=== PATIENT | female | born 1960 | race Caucasian/White ===

== ENCOUNTER 2016-06-21 21:26 | Emergency (ER) | payer OTHER ==
[~2016-06-21] VITALS: Ht 160 cm; Wt 52.0 kg
[~2016-06-21 21:26] MED LIST: BUPR-97 PO; CHOL5000 PO; CITA40TA13 PO; CLON0.5T PO; KEPP250T PO; LISI-567 PO; MELO-253 PO
[2016-06-21 21:40] VITALS: BP 120/83; PULSE 85; RESP 20; O2SAT 97
--- NOTE | 2016-06-21 21:50 | ED.REPORT ---
HPI-General Illness Date of Service Jun 21, 2016 ED Provider: Ivonne Hamilton MD 55 year old female with a history of alcoholism and seizure disorder presents to the ER accompanied by two friends from her adventism requesting assistance with alcohol detox. Last drink was two hours ago. Typically she drinks 9 beers, and/ or vodka daily, though she states she has consumed only beer today. History of hospitalization for alcohol withdrawal symptoms, though she denies seizure with alcohol withdrawal. She has successfully rehabilitated from alcoholism in the past, but states that she relapsed several weeks ago. Patient denies suicidal or homicidal ideations, and hallucinations. Nursing Notes Stated Complaint: ALCOHOL DETOX Chief Complaint: Substance Abuse Nursing Notes Reviewed: Yes Allergies: Coded Allergies: No Known Allergies (Unverified Allergy, Unknown, 05/12/14) Scheduled Bupropion ER (Wellbutrin XL) 150 Mg Tab.er.24h 150 MG PO DAILY Citalopram (Citalopram) 40 Mg Tablet 40 MG PO DAILY Levetiracetam (Keppra) Unknown Strength Tablet Unknown Dose PO HS Levetiracetam (Keppra) 500 Mg Tablet 500 MG PO DAILY Lisinopril (Lisinopril) 20 Mg Tablet 20 MG PO DAILY Meloxicam (Meloxicam) 15 Mg Tablet 15 MG PO DAILY Scheduled PRN Clonazepam (Klonopin) 0.5 Mg Tablet 1 MG PO BID PRN PRN For Anxiety Miscellaneous Medications Cholecalciferol (Vitamin D3) (Vitamin D3) 5,000 Unit Capsule 5,000 UNIT PO General Time Seen by MD: 21:48 Chief Complaint Other (Alcohol Detox) Hx Obtained From: Patient Arrived By: Walk-in Sudden in Onset?: No Similar Sx Previous: Yes Past Medical History Past Medical History Alcoholism Seizure disorder since Slight cerebral palsy at Anxiety Depression Reports: Hypertension, Stroke Past Surgical History Neck surgery 2 years ago Brain surgery for hemorrhage Smoking History Current Every Day Smoker Social History Alcohol Use: >5 per day Drug Use: Denies drug use Ambulatory Status Independent Review of Systems Full Review of Systems Constitutional: Reports: Chills Neurologic: Reports: Shaking Psychiatric: Denies: Hallucinations, auditory, Hallucinations, visual, Homicidal ideation, Suicidal ideation Complete sys rev & neg: except as marked. Physical Exam Vital Signs Vital Signs Date Time Temp Pulse Resp B/P Pulse Ox O2 Delivery O2 Flow Rate FiO2 06/22/16 01:33 60 18 95 Room Air 06/21/16 21:40 36.6 85 20 120/83 97 Room Air Initial VS: Reviewed General/Constitutional: Well-developed, Well-nourished Head / Eyes: Atraumatic, Normocephalic Neck: Supple, Non-tender, Full range of motion Extremities: Vascular intact, Neuro intact, No swelling, No tenderness Skin: Warm, Dry, No cyanosis Neurologic: Alert, Oriented, Nonfocal Respiratory / Chest: Breath sounds NL, No respiratory distress, No rales, No rhonchi, No wheezing Cardiovascular: Heart rate NL, Regular rhythm, Heart sounds NL, Cap refill not delayed, Peripheral circulation NL Psychiatric: Affect NL, Mood NL, Not suicidal, Not homicidal, No hallucinations , Cognitive function NL, Judgment/insight NL, Thought content NL Interpretation & Diagnostics Lab Results Interpretation Result Diagram: 06/21/16 2300 06/21/16 2300 Test 06/21/16 22:55 06/21/16 23:00 Urine Color Straw (YELLOW) Urine Appearance Hazy (CLEAR,HAZY) Urine pH 6.5 (5.0-8.0) Urine Specific [place] 1.003 (1.003-1.035) Urine Protein Negativemg/dL (NEG,TRACE) Urine Glucose (UA) Negativemg/dL (NEGATIVE) Urine Ketones Negativemg/dL (NEGATIVE) Urine Occult Blood Small (NEGATIVE) Urine Nitrite Positive (NEGATIVE) Urine Bilirubin Negative (NEGATIVE) Urine Urobilinogen Normalmg/dL (NORMAL) Urine Leukocyte Esterase Small (NEGATIVE) Urine RBC 0-2/hpf (0-2) Urine WBC 0-5/hpf (0-5) Urine Epithelial Cells Occasional/hpf (NONE-MOD) Urine Crystals None seen (NONE SEEN) Urine Bacteria Many/hpf (NONE-FEW) Urine Hyaline Casts None/lpf (NONE) Urine Granular Casts None seen (NONE SEEN) Urine Waxy Casts None seen (NONE SEEN) Urine Red Blood Cell Casts None seen (NONE SEEN) Urine White Blood Cell Casts None seen (NONE SEEN) Urine Mucus None seen (None Seen) Urine Trichomonas None seen (NONE SEEN) Urine Yeast None (NONE SEEN) Urinalysis Comment None Urine Culture Reflexed Indicated Hold Urine Received (Received) White Blood Count 5.9th/mm3 (3.8-10.1) Red Blood Count 4.42mil/mm3 (3.90-5.20) Hemoglobin 14.3g/dL (12.0-15.6) Hematocrit 40.9% (35.0-46.0) Mean Corpuscular Volume 92.5fL (81-100) Mean Corpuscular Hemoglobin 32.4pg (27.0-35.0) Mean Corpuscular Hemoglobin Concent 35.0% (32.0-37.0) Red Cell Distribution Width 14.4% (12.3-15.4) Platelet Count 304bil/L (150-400) Neutrophils (%) (Auto) 37.4% (40-74) Lymphocytes (%) (Auto) 48.6% (14-46) Monocytes (%) (Auto) 9.2% (4-12) Eosinophils (%) (Auto) 3.2% (0-5) Basophils (%) (Auto) 1.4% (0-3) Sodium Level 137mEq/L (134-144) Potassium Level 4.3mEq/L (3.5-5.2) Chloride Level 97mEq/L (97-108) Carbon Dioxide Level 25mmol/L (18-29) Blood Urea Nitrogen 5mg/dL (6-24) Creatinine 0.48mg/dL (0.57-1.00) Estimat Glomerular Filtration Rate 193mL/min (>59) Glucose Level 91mg/dL (60-99) Calcium Level 9.4mg/dL (8.5-10.1) Total Bilirubin 0.2mg/dL (0.0-1.2) Aspartate Amino Transf (AST/SGOT) 62U/L (0-50) Alanine Aminotransferase (ALT/SGPT) 50U/L (0-32) Alkaline Phosphatase 93U/L (25-150) Total Protein 7.7g/dL (6.4-8.4) Albumin 4.3g/dL (3.4-5.0) Thyroid Stimulating Hormone (TSH) 0.480uIU/mL (0.450-4.500) Hold [place] Top Tube Received (Received) Re-Eval/Medical Decision Med Decision/Clinical Course 55-year-old female brought in by her friends requesting detox from alcohol. At this time, she shows no evidence of alcohol withdrawal. Differential diagnosis includes but is not limited to alcohol abuse versus other substance abuse versus intoxication versus alcohol withdrawal. Patient has been accepted by [facility]. I have written her prescription for Keppra and a Ativan taper. She is aware and amenable to discharge Source of Hx: Old records Time of Eval: 00:55 Re-Evaluation/Progress Note: [facility] contacted. Agrees to take patient at 02:00 with Keppra script. Re-Evaluation/Progress Note: Discussed plan to discharge with instructions to go straight to [facility]. Patient understands and agrees to the plan. All other questions addressed. Counseled Regarding: Diagnosis, Lab results, Need for follow-up, When/why to return to ED Discharge & Departure Primary Impression: Alcohol abuse Disposition: Home Discharge Condition All VS Reviewed: Yes Condition: Stable Patient Instructions: Abuse of Alcohol (DC), Alcohol Withdrawal (DC) Additional Instructions: Go straight to [facility] in the morning. Do not consume any alcohol. Take Ativan as directed. Do not drive or consume alcohol while taking Ativan. Continue your Keppra as prescribed. Best of luck with your recovery. Referrals: OTHER,PHYSICIAN (PCP) [facility] Scribe Attestation Portions of this note were transcribed by Jacob Vaca. I, Dr. Hamilton, personally performed the history, physical exam and medical decision-making; I reviewed and confirmed the accuracy of the information in the transcribed note. Signed by: Divine Goodman. 06/22/2016 - 01:19 copies to: [facility] ; [facility] Ivonne Hamilton MD Jun 21, 2016 21:50 JACOB VACA Jun 21, 2016 22:17
[2016-06-21 23:07] LABS: APPEARANCE,URINE HAZY (CLEAR,HAZY); COLOR,URINE STRAW (YELLOW); OCCULT BLOOD,URINE SMALL (NEGATIVE); PH,URINE 6.5 (5.0-8.0); UROBILINOGEN,URINE NORMAL (NORMAL)
[2016-06-21 23:10] LABS: BASOPHILS % (AUTO) 1.4 % (0-3); EOSINOPHILS % (AUTO) 3.2 % (0-5); MONOCYTES % (AUTO) 9.2 % (4-12); Mean Corpuscular Hemoglobin 32.4 pg (27.0-35.0); Mean Corpuscular Volume 92.5 fL (81-100); NEUTROPHILS % (AUTO) 37.4 % (40-74); Platelet Count 304 bil/L (150-400)
[2016-06-22] MEDS ORDERED: _LORazepam 2 MG Tablet PO SCH (01:00)
[2016-06-22] MEDS ORDERED: levETIRAcetam 500 mg Tablet PO ONE (01:05)
[2016-06-22] MEDS ORDERED: KEP500TA PO (01:18)
[2016-06-22 01:33] VITALS: PULSE 60; RESP 18; O2SAT 95
== END 2016-06-22 01:34 | disposition home or self-care (01) ==
LOC: SED 21:26
DX: F10.10 Alcohol abuse, uncomplicated (principal); I10 Essential (primary) hypertension; F17.200 Nicotine dependence, unspecified, uncomplicated; B96.20 Unspecified Escherichia coli [E. coli] as the cause of diseases classified elsewhere; Z86.73 Personal history of transient ischemic attack (TIA), and cerebral infarction without residual deficits

== ENCOUNTER 2016-08-01 00:01 | Emergency (ER) | payer OTHER ==
[~2016-08-01] VITALS: Ht 160 cm; Wt 52.7 kg
[~2016-08-01 00:01] MED LIST changes: +KEP500TA PO
[2016-08-01 00:07] VITALS: BP 100/66; PULSE 74; RESP 15; O2SAT 95
--- NOTE | 2016-08-01 00:32 | ED.REPORT ---
HPI-Overdose/Alcohol Toxicity Date of Service August 01, 2016 ED Provider: Teofilo Zepeda MD A 55 year old female with a medical history including hypertension, alcoholism, seizure disorder, and slight cerebral palsy at presents to the ED requesting assistance with alcohol detox. The patient's last alcoholic drink was one hour prior to arrival. She reports drinking beer and wine for the past eight or nine days, before which she was sober for ten months. However, she was seen in the ED on 06/21/16 with similar symptoms and was sent to [facility]. The patient also reports smoking methamphetamines for the first time four days ago. She is currently feeling "psychotic" and anxious. The patient denies other symptoms. She has a bed at [facility] at 0300 this morning. Nursing Notes Stated Complaint: DETOX Chief Complaint: Substance Abuse Nursing Notes Reviewed: Yes Allergies: Coded Allergies: No Known Allergies (Unverified Allergy, Unknown, 05/12/14) Scheduled Bupropion ER (Wellbutrin SR) 100 Mg Tablet.er 100 MG PO DAILY Cetirizine HCl (Zyrtec) 10 Mg Capsule 10 MG PO HS Citalopram (Citalopram) 40 Mg Tablet 40 MG PO DAILY Gabapentin (Gabapentin) 300 Mg Capsule 300 MG PO BID Levetiracetam (Keppra) 500 Mg Tablet 500 MG PO DAILY Meloxicam (Meloxicam) 7.5 Mg Tablet 7.5 MG PO DAILY Scheduled PRN Propranolol HCl (Propranolol HCl) 20 Mg Tablet 20 MG PO BID PRN PRN For Anxiety or Agitation hydrOXYzine Hcl (HydrOXYzine Hcl) 25 Mg Tablet 25 MG PO QID PRN PRN For Itching General Time Seen by Provider: 00:30 Chief Complaint Other (Alcohol Detox) Hx Obtained From: Patient Arrived By: Walk-in Onset Occurred: 1 - 4 hours ago Symptom Duration: Since onset Severity: Current: No pain currently Severity: Maximum: No pain Pertinent Negative: Relieved by nothing Related History: Reports: Alcoholism, Anxiety, Depression Immunizations: Unknown Recent Healthcare: No recent doctor visit Similar Sx Previous: Yes Past Medical History Past Medical History Alcoholism Seizure disorder since Slight cerebral palsy at Anxiety Depression Reports: Hypertension, Stroke Past Surgical History Neck surgery 2 years ago Brain surgery for hemorrhage Smoking History Current Every Day Smoker Social History Reportedly used meth once, for the first time, on 07/28/16 Alcohol Use: >5 per day Drug Use: Denies drug use, THC Ambulatory Status Independent Review of Systems Review of Systems Note: + Alcohol detox assistance request, feeling "psychotic" Constitutional: Denies: Fever Respiratory: Denies: Non-productive cough, Shortness of breath GI: Denies: Diarrhea, Vomiting Psychiatric: Reports: Anxiety Complete sys rev & neg: except as marked. Physical Exam Initial Vital Signs Vital Signs (First) Date Time Temp Pulse Resp B/P Pulse Ox O2 Delivery O2 Flow Rate FiO2 08/01/16 00:07 36.1 74 15 100/66 95 Room Air Initial VS: Reviewed, Vital signs normal Head / Eyes: Atraumatic, Normocephalic ENT: Conjunctiva normal, No scleral icterus Neck: Supple, Full range of motion Skin: Warm, Dry, No cyanosis General/Constitutional: Awake, Alert Respiratory / Chest: Breath sounds NL, Breath sounds = bilat, No respiratory distress Cardiovascular: Heart rate NL, Regular rhythm, Heart sounds NL Abdomen: Soft, Non-tender (No tenderness over liver) Neurologic: Oriented X3, Speech NL Movement Abnormality: Positive: Tremor Psychiatric: Affect NL Abnormal Thinking / Perception: Positive: Hallucinations, tactile (Describes bugs coming out of her skin) Interpretation & Diagnostics URINE DRUG SCREEN: + Marijuana Otherwise Negative Breathalyzer: 0.187 Re-Eval/Medical Decision Med Decision/Clinical Course 55-year-old female who drinks intermittently. She states that she has been drinking for 8 or 9 days now. She has a history of seizure disorder and withdrawal seizures. She is on she desires detox. She has RE [facility]cre[facility] with [facility]. Has no physical exam findings present time with the exception of the smell of alcohol. She had no significant abnormalities on labs done last month. Current drug screen shows only marijuana. Current alcohol by breathalyzer is 0.187. Arrangements were made for her to go to sobering services. She was sent with 30 days supply of her current medications which she had just picked up at the pharmacy and a Ativan taper prepack. Source of Hx: Old records Re-Evaluation/Progress : Time of Eval: 01:28 Patient Status: Condition improved Re-Evaluation/Progress Note: Discussed with patient lab results, diagnosis, and plan for discharge to [facility]. Follow-up and return to the ER instructions given. Patient agrees with plan for care and all questions were addressed. Consultation : Call Returned at: 01:20 Workforce Analyst: Agrees with eval, Agrees with plan Note: [facility]: Will accept patient at 0300 Counseled Regarding: Diagnosis, Lab results, Need for follow-up, When/why to return to ED Discharge & Departure Impression: Primary Impression: Alcohol withdrawal Complication of substance-induced condition: uncomplicated Qualified Code: F10.230 - Alcohol dependence with withdrawal, uncomplicated Additional Impressions: Methamphetamine abuse Seizure disorder )( Condition at Discharge: No danger to self, No danger to others, No suicidal ideation, No homicidal ideation, Clear for alcohol rehab Disposition: Home Discharge Condition All VS Reviewed: Yes Condition: Improved Patient Instructions: Alcohol Withdrawal (ED), Methamphetamine Abuse (ED) Additional Instructions: Continue your present medications (Buproprion, Ceterizine, Citalopram, Gabapentin, Hydroxyzine, Levetiracetam, Meloxicam, Propranolol per bottle labels ). Ativan taper, please see attached prescription. Go directly to [facility] for [facility]. Referrals: OTHER,PHYSICIAN (PCP) Scribe Attestation Portions of this note were transcribed by Jaimie Hart. I, Dr. Zepeda, personally performed the history, physical exam, and medical decision-making; I reviewed and confirmed the accuracy of the information in the transcribed note. Signed by: Divine Johnson, 08/01/2016, 02:15 Teofilo Zepeda MD August 01, 2016 00:32 JAIMIE HART August 01, 2016 00:59
[2016-08-01] MEDS ORDERED: _LORazepam 2 MG Tablet PO SCH (01:10)
[2016-08-01] MEDS ORDERED: HYDR-656 PO (01:11)
[2016-08-01] MEDS ORDERED: BUPR100T7 PO (01:11)
[2016-08-01] MEDS ORDERED: GABA-502 PO (01:11)
[2016-08-01] MEDS ORDERED: MELO-259 PO (01:11)
[2016-08-01] MEDS ORDERED: PROP20TA5 PO (01:11)
[2016-08-01] MEDS ORDERED: CETI10CA PO (01:11)
[2016-08-01 02:36] VITALS: BP 110/68; PULSE 70; RESP 16; O2SAT 96
== END 2016-08-01 02:50 | disposition other institution (70) ==
LOC: SED 00:01
DX: F10.230 Alcohol dependence with withdrawal, uncomplicated (principal); F15.10 Other stimulant abuse, uncomplicated; R56.9 Unspecified convulsions; I10 Essential (primary) hypertension; F17.200 Nicotine dependence, unspecified, uncomplicated; Z86.73 Personal history of transient ischemic attack (TIA), and cerebral infarction without residual deficits

== ENCOUNTER 2016-08-12 18:52 | Emergency (ER) | payer OTHER ==
[~2016-08-12] VITALS: Ht 160 cm; Wt 54.5 kg
[~2016-08-12 18:52] MED LIST changes: -BUPR-97 PO; +BUPR100T7 PO; +CETI10CA PO; -CHOL5000 PO; -CLON0.5T PO; +GABA-502 PO; +HYDR-656 PO; -KEPP250T PO; -LISI-567 PO; -MELO-253 PO; +MELO-259 PO; +PROP20TA5 PO
[2016-08-12 18:57] VITALS: BP 105/71; PULSE 72; RESP 16; O2SAT 97
--- NOTE | 2016-08-12 19:22 | ED.REPORT ---
HPI-General Illness Date of Service August 12, 2016 ED Provider: Dr. Marin 55 y/o female with a hx of hypertension, alcoholism, seizure disorder, depression, anxiety and slight cerebral palsy at presents to the ED requesting assistance with alcohol detox. [facility]She states she drinks "6 tall boys a day", last drink 3 hours ago. The pt takes Keppra every day. Has her usual home medications with her Nursing Notes Chief Complaint: Substance Abuse Nursing Notes Reviewed: Yes Allergies: Coded Allergies: No Known Allergies (Unverified Allergy, Unknown, 08/12/16) Scheduled Bupropion ER (Wellbutrin SR) 100 Mg Tablet.er 100 MG PO DAILY Cetirizine HCl (Zyrtec) 10 Mg Capsule 10 MG PO HS Citalopram (Citalopram) 40 Mg Tablet 40 MG PO DAILY Gabapentin (Gabapentin) 300 Mg Capsule 300 MG PO BID Levetiracetam (Keppra) 500 Mg Tablet 500 MG PO DAILY Meloxicam (Meloxicam) 7.5 Mg Tablet 7.5 MG PO DAILY Scheduled PRN Propranolol HCl (Propranolol HCl) 20 Mg Tablet 20 MG PO BID PRN PRN For Anxiety or Agitation hydrOXYzine Hcl (HydrOXYzine Hcl) 25 Mg Tablet 25 MG PO QID PRN PRN For Itching General Time Seen by MD: 19:19 Chief Complaint Other (Alcohol detox) Hx Obtained From: Patient Arrived By: Walk-in Sudden in Onset?: No Onset Occurred: 1 - 4 hours ago Symptom Duration: Since onset Severity: Current: No pain currently Severity: Maximum: No pain Recent Healthcare: Recent doctor visit Similar Sx Previous: Yes Past Medical History Past Medical History Alcoholism Seizure disorder since Slight cerebral palsy at Anxiety Depression Reports: Hypertension, Stroke Past Surgical History Neck surgery 2 years ago Brain surgery for hemorrhage Smoking History Current Every Day Smoker Social History Reportedly used meth once, for the first time, on 07/28/16 Alcohol Use: >5 per day Drug Use: Denies drug use, THC Ambulatory Status Independent Review of Systems +Assistance with alcohol detox. Complete sys rev & neg: except as marked. Physical Exam Vital Signs Vital Signs Date Time Temp Pulse Resp B/P Pulse Ox O2 Delivery O2 Flow Rate FiO2 08/12/16 20:45 36.6 71 17 110/72 98 Room Air 08/12/16 18:57 36.7 72 16 105/71 97 Room Air Initial VS: Reviewed Head / Eyes: Atraumatic Neck: Supple, Full range of motion Extremities: Vascular intact, Neuro intact Skin: Warm, Dry, No cyanosis Neurologic: Alert, Oriented, Nonfocal General/Constitutional: Awake, Alert, Cooperative Ambulatory Clear Speech Respiratory / Chest: Atraumatic, Breath sounds NL, Breath sounds = bilat, No respiratory distress, No rales, No rhonchi, No wheezing Cardiovascular: Heart rate NL, Regular rhythm, Heart sounds NL, No gallop, No murmurs, No rubs Back: Atraumatic, Full range of motion Interpretation & Diagnostics Lab Results Interpretation Test 08/12/16 19:20 08/12/16 19:22 Hold Urine Received (Received) Urine Color Straw (YELLOW) Urine Appearance Clear (CLEAR,HAZY) Urine pH 6.0 (5.0-8.0) Urine Specific [place] <1.005 (1.003-1.035) Urine Protein Negativemg/dL (NEG,TRACE) Urine Glucose (UA) Negativemg/dL (NEGATIVE) Urine Ketones Negativemg/dL (NEGATIVE) Urine Occult Blood Trace (NEGATIVE) Urine Nitrite Negative (NEGATIVE) Urine Bilirubin Negative (NEGATIVE) Urine Urobilinogen Normalmg/dL (NORMAL) Urine Leukocyte Esterase Trace (NEGATIVE) Urine RBC 0-2/hpf (0-2) Urine WBC 0-5/hpf (0-5) Urine Epithelial Cells Occasional/hpf (NONE-MOD) Urine Crystals None seen (NONE SEEN) Urine Bacteria Many/hpf (NONE-FEW) Urine Hyaline Casts None/lpf (NONE) Urine Granular Casts None seen (NONE SEEN) Urine Waxy Casts None seen (NONE SEEN) Urine Red Blood Cell Casts None seen (NONE SEEN) Urine White Blood Cell Casts None seen (NONE SEEN) Urine Mucus None seen (None Seen) Urine Trichomonas None seen (NONE SEEN) Urine Yeast None (NONE SEEN) Urinalysis Comment None Urine Culture Reflexed Indicated Drug Test: Marijuana = Positive Tricyclic Antidepressants = Positive Lab Results Interpretation: Breathalyzer = 0.174 Re-Eval/Medical Decision Source of Hx: Old records Time of Eval: 19:24 Re-Evaluation/Progress Note: Discussed lab results and diagnosis. Informed the pt of the plan to discharge. Pt understands and agrees with plan. F/U instructions and RTER warning given. All questions addressed. Counseled Regarding: Diagnosis, Lab results, Need for follow-up, When/why to return to ED Discharge & Departure Primary Impression: Alcohol withdrawal Complication of substance-induced condition: uncomplicated Qualified Code: F10.230 - Alcohol dependence with withdrawal, uncomplicated Disposition: Home Discharge Condition All VS Reviewed: Yes Condition: Stable Additional Instructions: To sobering services, patient is medically cleared. Continue previous outpatient medications. Lorazepam taper and ondansetron provided. Referrals: [facility] Scribe Attestation Portions of this note were transcribed by Alissa Pop. I, , personally performed the history, physical exam and medical decision-making;I reviewed and confirmed the accuracy of the information in the transcribed note. Signed by Divine Austin. 08/12/16 0338 copies to: [facility] Mateo Marin MD August 12, 2016 19:22 Alissa Pop August 12, 2016 19:28 Alissa Pop August 12, 2016 19:28
[2016-08-12 19:43] LABS: APPEARANCE,URINE CLEAR (CLEAR,HAZY); COLOR,URINE STRAW (YELLOW)
[2016-08-12 19:44] LABS: OCCULT BLOOD,URINE TRACE (NEGATIVE); UROBILINOGEN,URINE NORMAL (NORMAL)
[2016-08-12] MEDS ORDERED: _Ondansetron ODT 4 mg Tablet PO PRN (19:45)
[2016-08-12] MEDS ORDERED: _LORazepam 2 MG Tablet PO SCH (19:45)
[2016-08-12] MEDS ORDERED: _Nitrofurantoin Macrocrystal 100 mg Capsule PO SCH (20:30)
[2016-08-12 20:45] VITALS: BP 110/72; PULSE 71; RESP 17; O2SAT 98
== END 2016-08-12 20:53 | disposition home or self-care (01) ==
LOC: SED 18:52
DX: F10.230 Alcohol dependence with withdrawal, uncomplicated (principal); I10 Essential (primary) hypertension; F32.9 Major depressive disorder, single episode, unspecified; F41.9 Anxiety disorder, unspecified; G80.9 Cerebral palsy, unspecified; F17.200 Nicotine dependence, unspecified, uncomplicated; B96.20 Unspecified Escherichia coli [E. coli] as the cause of diseases classified elsewhere; Z86.73 Personal history of transient ischemic attack (TIA), and cerebral infarction without residual deficits